=== PATIENT | male | born 1955 | race Caucasian/White ===

== ENCOUNTER → 2023-08-20 12:00 | Outpatient (REF) | payer MEDICARE, OTHER, SELFPAY | LOC: CLAB 12:00 | PROVIDERS: ATTENDING PHYSICIAN Surgery | DX: Z21 Asymptomatic human immunodeficiency virus [HIV] infection status (principal) | CPT/HCPCS: 87624; 88112 ==

== ENCOUNTER → 2023-12-18 06:15 | Day surgery (SDC) | payer MEDICARE, OTHER, SELFPAY | LOC: GI 06:15 | PROVIDERS: ATTENDING PHYSICIAN Specialist; FAMILY PHYSICIAN Internal Medicine Infectious Disease | PROC: 0DJD8ZZ Inspection of Lower Intestinal Tract, Via Natural or Artificial Opening Endoscopic (ICD-10-PCS; 2023-12-18) | DX: Z12.11 Encounter for screening for malignant neoplasm of colon (principal); K57.30 Diverticulosis of large intestine without perforation or abscess without bleeding | CPT/HCPCS: G0121 ==